=== PATIENT | male | born 2000 | race Hispanic/Latino ===

== ENCOUNTER 2022-08-05 07:56 | Emergency (ER) | payer BC ==
[~2022-08-05] VITALS: Ht 172.7 cm; Wt 100.0 kg
[2022-08-05] VITALS (7 sets, daily range): BP systolic 112–131; BP diastolic 68–93
== END 2022-08-05 09:35 | disposition home or self-care (01) | DRG 556 ==
LOC: ED 07:56
DX: M25.572 Pain in left ankle and joints of left foot (principal)

== ENCOUNTER 2024-02-02 15:30 | Emergency (ER) | payer SELFPAY ==
[~2024-02-02] VITALS: Ht 172.7 cm; Wt 137.6 kg
[2024-02-02 17:22] VITALS: BP 119/95
[2024-02-02] MEDS ORDERED: NAPROXEN500 MG PO (17:26)
[2024-02-02 17:30] VITALS: BP 124/88
[2024-02-02 17:38] VITALS: BP 124/88
== END 2024-02-02 17:36 | disposition home or self-care (01) | DRG 563 ==
LOC: ED 15:30
DX: S93.401A Sprain of unspecified ligament of right ankle, initial encounter (principal); V86.99XA Unspecified occupant of other special all-terrain or other off-road motor vehicle injured in nontraffic accident, initial encounter; Y92.89 Other specified places as the place of occurrence of the external cause; Y99.0 Civilian activity done for income or pay